=== PATIENT | female | born 1960 | race Caucasian/White ===

== ENCOUNTER 2022-07-23 12:27 | Emergency (ER) | payer BC ==
[~2022-07-23] VITALS: Ht 160 cm; Wt 88.5 kg
[2022-07-23 13:38] LABS: HEMATOCRIT 36.5 % (31.2-41.9); MEAN CORPUSCULAR VOLUME 79.9 fL (75.5-95.3); PLATELET COUNT (AUTO) 209 K/uL (179-408)
[2022-07-23 13:58] LABS: BILIRUBIN,DIRECT 0.3 mg/dL (0.0-0.2); BILIRUBIN,TOTAL 0.6 mg/dL (0.2-1.0); CREATININE 0.8 mg/dL (0.6-1.3); POTASSIUM 3.8 mmol/L (3.5-5.1)
--- NOTE | 2022-07-23 15:01 | NUR ---
PAIENT IS AWAKE AND ALERT. AWAITING TEST RESULTS.
[2022-07-23] MEDS ORDERED: LORA0.5T48 PO (15:33)
--- NOTE | 2022-07-23 15:47 | NUR ---
DC, RX (INCLUDING PRECAUTIONS) AND FOLLOW UP INSTRUCTIONS GIVEN AND EXPLAINED TO PATIENT WHO STATES SHE UNDERSTANDS ALL INSTRUCTIONS
== END 2022-07-23 15:50 | disposition home or self-care (01) ==
LOC: ER 12:32
DX: R18.8 Other ascites (principal); K74.60 Unspecified cirrhosis of liver; R14.0 Abdominal distension (gaseous); R03.0 Elevated blood-pressure reading, without diagnosis of hypertension; R16.2 Hepatomegaly with splenomegaly, not elsewhere classified; J90 Pleural effusion, not elsewhere classified
CPT/HCPCS: 36415; 83605; 83690; 85025; A4663